=== PATIENT | male | born 1990 | race African-American/Black ===

== ENCOUNTER 2017-01-01 18:41 | Emergency (ER) | payer MEDICARE, MEDICAID ==
[~2017-01-01] VITALS: Ht 162.6 cm; Wt 79.4 kg
[2017-01-01 18:51] VITALS: BP 138/76
[2017-01-01] MEDS ORDERED: IBUPROFEN 600 MG TAB PO ONE (21:45)
== END 2017-01-01 21:57 | disposition home or self-care (01) ==
LOC: ER 18:44
DX: S62.325A Displaced fracture of shaft of fourth metacarpal bone, left hand, initial encounter for closed fracture (principal); M54.5 Low back pain; M54.2 Cervicalgia; J45.909 Unspecified asthma, uncomplicated; F17.210 Nicotine dependence, cigarettes, uncomplicated; W22.01XA Walked into wall, initial encounter; Y93.89 Activity, other specified; Y92.89 Other specified places as the place of occurrence of the external cause; Y99.8 Other external cause status
CPT/HCPCS: 73130

== ENCOUNTER 2017-05-10 09:06 | Emergency (ER) | payer MEDICARE, MEDICAID ==
[~2017-05-10] VITALS: Ht 160 cm; Wt 75.3 kg
[2017-05-10 09:54] VITALS: BP 115/68
[2017-05-10] MEDS ORDERED: cefTRIAXone SOD 1,000 MG VL ONE (10:01)
[2017-05-10] MEDS ORDERED: cefTRIAXone SOD 1,000 MG VL IM ONE (10:15)
[2017-05-10] MEDS ORDERED: KETOROLAC TROMETH 60MG/2ML VIAL IM ONE (10:15)
== END 2017-05-10 10:49 | disposition home or self-care (01) ==
LOC: ER 09:06
DX: J02.9 Acute pharyngitis, unspecified (principal); F17.210 Nicotine dependence, cigarettes, uncomplicated; J45.909 Unspecified asthma, uncomplicated; Z59.0 Homelessness
CPT/HCPCS: 96372; 99284; J0696; J1885